=== PATIENT | female | born 1995 | race Caucasian/White ===

== ENCOUNTER 2016-05-27 21:19 | Emergency (ER) | payer OTHER ==
--- NOTE | 2016-05-27 21:54 | ED ORDER SUMMARY ---
..... Patient: MALORIE JACOBSON OrderSheet [facility] VisitID: [id number] [address] [place] [address] 21y, F Registration Date/Time: 05/27/2016 ORDER SHEET Weight: 104.3 kg (stated) Allergies: No Known Drug Allergy GENERAL ORDERS: MEDICATION ORDERS: Zofran ODT PO 4 mg (NOW) (21:54 05/27/2016 EKngozilekhanh P.A.-C) (Ack 21:57 EInderbitzen R.N.) (21:59 EInderbitzen R.N.) Benadryl PO 50 mg (NOW) (:54 05/27/2016 James P.A.-C) (Ack 21:57 EInderbitzen R.N.) (21:59 EInderbitzen R.N.) IV FLUIDS: ORDER SHEET NOTES: [Electronically signed by Albertina Lomeli R.N. (22:03 05/27/2016)] [Electronically signed by Roberta BuenoAShantell-Bill (22:05/27/2016)] [Electronically locked/signed by Albertina Lomeli R.N. (22:03 05/27/2016)]
--- NOTE | 2016-05-27 21:54 | ED NURSING NOTES ---
Clinical Report - Nurses [facility] [address] [place] [address] 05/27/2016 21:22 Patient: MALORIE JACOBSON TRIAGE Triage time 21:May 27 2016. Acuity: LEVEL 4. Chief Complaint: SKIN PROBLEM. 21:28 05/27/16. SEPSIS SCREEN: Sepsis Screen. Negative (no infection suspected/documented). SILVANA COMA SCORE: Silvana Coma Scale: 15- eyes open spontaneously (4); best verbal response- oriented x 4 (5); best motor response- obeys commands (6). --21:35 Albertina Lomeli R.N. 21:28 05/27/16. BP: 132/74. HR: 96. RR: 16. O2 saturation: 98%. Temp: 98.5 F. --21:35 Albertina Lomeli R.N. Weight: 104.3 kg stated. Height/Length: 69 inches Per Patient. BMI: 34. --21:27 Albertina Lomeli R.N. Medications None. --21:29 Albertina Lomeli R.N. 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 --21:34 Albertina Lomeli R.N. Medication/allergy information source: the patient. --21:35 Albertina Lomeli R.N. Allergies No Known Drug Allergy. --21:29 Albertina Lomeli R.N. History Arrived by private vehicle. Historian: patient. Accompanied by family and spouse. Reported as located on the abdomen. Onset. (1 week ago). It is described as itchy. She has had itching. 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 PAST MEDICAL HX: Last normal menstrual period- does not get period, last one at age 13. SOCIAL HX: Heavy tobacco smoker (cigarette)- less than 1 pack per day. No alcohol use or drug use. No infectious disease exposure. ABUSE ASSESSMENT: No report of abuse. SELF HARM ASSESSMENT: A self harm assessment was performed. The patient answered "no" to the question "Have you recently felt down, depressed, or hopeless?", "Have you noticed less interest or pleasure in doing things?", "Do you have thoughts of harming or killing yourself?", "Are you here because you tried to hurt yourself?", "Have you ever tried to hurt yourself before today?", "Have you recently had thoughts about harming or killing others?" and "Do you have any dangerous items in your possession?". NUTRITIONAL RISK ASSESSMENT: The nutritional risk assessment revealed no deficiencies. FUNCTIONAL ASSESSMENT: Functional assessment: no impairments noted. LEARNING NEEDS ASSESSMENT: The learning needs assessment revealed no barriers. SKIN INTEGRITY ASSESSMENT: Skin integrity risk assessment completed. No skin integrity risk identified. --21:35 Albertina Lomeli R.N. PROBLEMS: no known problems. ADDITIONAL SURGERIES: Cholecystectomy. Cyst on left ovary removed. --21:30 Albertina Lomeli R.N. Interventions ID band on patient. --21:35 Albertina Lomeli R.N. PHYSICAL ASSESSMENT 21:37 05/27/16. GENERAL / NEURO / PSYCH: Alert. The patient does not appear to be in acute distress. Oriented X 4. HEENT: Pupils equal, round and reactive to light. Mucous membranes are pink. RESPIRATORY: Respirations not labored. Breath sounds within normal limits. CVS: Capillary refill less than 2 seconds. SKIN: Skin is warm and dry. Well-demarcated skin rash present- slightly red, crater like, flaking, itchy on abdomen. --21:37 Albertina Lomeli R.N. NURSING PROGRESS NOTES 21:36 05/27/16. The initial plan of care for this patient includes an assessment with efforts to address impairment of the integumentary system. This plan of care was discussed with the patient. Patient gowned. Reassurance given. Patient identifiers checked. Call light placed in reach. Side rails up x 1. Bed placed in lowest position. Brakes of bed on. Patient ready for evaluation. --21:36 Albertina Lomeli R.N. 21:59 05/27/2016 Cj ODT (Ondansetron) PO Oral Disintegrating Tablets 4 mg given. Allergies verified and confirmed 5 rights. --21:59 Albertina Lomeli R.N. 21:59 05/27/2016 Benadryl (DiphenhydrAMINE HCl) PO Capsules 50 mg given. Allergies verified, confirmed 5 rights and sedative warning given to the patient. --21:59 Albertina Lomeli R.N. DISPOSITION / DISCHARGE 22:03 05/27/16. Condition at departure: improved and stable. The goals identified in the patient's plan of care were met. No learning barriers present. Reviewed medication(s) side effects, precautions, dosing and course information. Prescription(s) given to the patient. Reviewed referral to a primary care physician for followup. Summary of care provided to patient via paper. The patient was discharged home and accompanied by spouse. She left the Emergency Department ambulatory and via private vehicle. Spouse driving. --22:03 Albertina Lomeli R.N. 21:28 05/27/16. BP: 132/74. HR: 96. RR: 16. O2 saturation: 98%. Temp: 98.5 F. --22:03 Albertina Lomeli R.N. Departure time: :May 27 2016. --22:03 Albertina Lomeli R.N. Locked/Released at 05/27/2016 22:03 by Albertina Lomeli R.N.
--- NOTE | 2016-05-27 21:54 | ED CLINICAL REPORT ---
Clinical Report - Physicians/Mid Levels [facility] [address] [place] [address] 05/27/2016 21:22 Patient: MALORIE JACOBSON Time Seen: 22:08 May 27 2016. Arrived- By private vehicle. Historian- patient. 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 It is described as itchy. (Patient reports rash over the last 7 days. Pruritic in nature. Has been with nausea, times vomiting, decreased appetite. Some chills. Recent illness similar nature to her son. Denies any cough. Denies any recent antibiotics. Denies any recent foreign travel.). REVIEW OF SYSTEMS No cough, hoarseness, chest pain or diarrhea. All systems otherwise negative, except as recorded above. PAST HISTORY Tetanus immunization status is up-to-date. Problems: no known problems. Additional Surgeries: Cholecystectomy. Cyst on left ovary removed. 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 None. Allergies: No Known Drug Allergy. SOCIAL HISTORY Current every day heavy tobacco smoker. No alcohol use or drug use. ADDITIONAL NOTES The nursing notes have been reviewed. PHYSICAL EXAM Vital Signs: 05/27/2016 21:28 BP: 132/74. HR: 96. RR: 16. O2 saturation: 98%. Temp: 98.5 F. Appearance: Alert. No acute distress. ENT: Ears normal. Nose normal. Neck: Neck supple. No lymphadenopathy. CVS: Normal heart rate and rhythm. Heart sounds normal. Respiratory: No respiratory distress. Breath sounds normal. Skin: Skin warm. Rash present on the trunk (Small central clearing her abdomen, with a dry appearing primarily macular scaly rash. No vesicles no drainage.). Neuro: Oriented X 3. PROGRESS AND PROCEDURES Course of Care: Patient with a rash on the abdomen, dry and nature was small circular lesions, central clearing, most consistent with fungal etiology. Abdomen is soft. Negative exam, no signs of septic origin. Likely viral etiology. 05/27/2016 21:28 BP: 132/74. HR: 96. RR: 16. O2 saturation: 98%. Temp: 98.5 F. Patient is stable. Symptoms better. Patient/family counseled. Disposition: Discharged. Condition: good. CLINICAL IMPRESSION Contact dermatitis. Tinea corporis INSTRUCTIONS (Address: [place] [address] Take benadryl). Warnings: Further evaluation is necessary. Prescription Medications: Zofran (orally disintegrating tablets) 4 mg: take 1 orally every 6 hours for 3 days as needed for nausea. Dispense ten (10). No refill. Substitution is permissible. Ketoconazole 2% Cream: apply to affected area as needed for itching twice daily for 1 week, until symptoms improve. Dispense sixty (60) grams. No refills. Understanding of the discharge instructions verbalized. (Electronically signed by Roberta Bueno P.A.-C 05/27/2016 22:10)
--- NOTE | 2016-05-27 21:54 | ED CLINICAL REPORT ---
Clinical Report - Physicians/Mid Levels [facility] [address] [place] [address] 05/27/2016 21:22 Patient: MALORIE JACOBSON Time Seen: 22:08 May 27 2016. Arrived- By private vehicle. Historian- patient. 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 It is described as itchy. (Patient reports rash over the last 7 days. Pruritic in nature. Has been with nausea, times vomiting, decreased appetite. Some chills. Recent illness similar nature to her son. Denies any cough. Denies any recent antibiotics. Denies any recent foreign travel.). REVIEW OF SYSTEMS No cough, hoarseness, chest pain or diarrhea. All systems otherwise negative, except as recorded above. PAST HISTORY Tetanus immunization status is up-to-date. Problems: no known problems. Additional Surgeries: Cholecystectomy. Cyst on left ovary removed. 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 None. Allergies: No Known Drug Allergy. SOCIAL HISTORY Current every day heavy tobacco smoker. No alcohol use or drug use. ADDITIONAL NOTES The nursing notes have been reviewed. PHYSICAL EXAM Vital Signs: 05/27/2016 21:28 BP: 132/74. HR: 96. RR: 16. O2 saturation: 98%. Temp: 98.5 F. Appearance: Alert. No acute distress. ENT: Ears normal. Nose normal. Neck: Neck supple. No lymphadenopathy. CVS: Normal heart rate and rhythm. Heart sounds normal. Respiratory: No respiratory distress. Breath sounds normal. Skin: Skin warm. Rash present on the trunk (Small central clearing her abdomen, with a dry appearing primarily macular scaly rash. No vesicles no drainage.). Neuro: Oriented X 3. PROGRESS AND PROCEDURES Course of Care: Patient with a rash on the abdomen, dry and nature was small circular lesions, central clearing, most consistent with fungal etiology. Abdomen is soft. Negative exam, no signs of septic origin. Likely viral etiology. 05/27/2016 21:28 BP: 132/74. HR: 96. RR: 16. O2 saturation: 98%. Temp: 98.5 F. Patient is stable. Symptoms better. Patient/family counseled. Disposition: Discharged. Condition: good. CLINICAL IMPRESSION Contact dermatitis. Tinea corporis INSTRUCTIONS (Address: [place] [address] Take benadryl). Warnings: Further evaluation is necessary. Prescription Medications: Zofran (orally disintegrating tablets) 4 mg: take 1 orally every 6 hours for 3 days as needed for nausea. Dispense ten (10). No refill. Substitution is permissible. Ketoconazole 2% Cream: apply to affected area as needed for itching twice daily for 1 week, until symptoms improve. Dispense sixty (60) grams. No refills. Understanding of the discharge instructions verbalized. (Electronically signed by Roberta Bueno P.A.-C 05/27/2016 22:10)
--- NOTE | 2016-05-27 21:54 | ED ORDER SUMMARY ---
..... Patient: MALORIE JACOBSON OrderSheet [facility] VisitID: [id number] [address] [place] [address] 21y, F Registration Date/Time: 05/27/2016 ORDER SHEET Weight: 104.3 kg (stated) Allergies: No Known Drug Allergy GENERAL ORDERS: MEDICATION ORDERS: Zofran ODT PO 4 mg (NOW) (21:54 05/27/2016 EKngozilekhanh P.A.-C) (Ack 21:57 EInderbitzen R.N.) (21:59 EInderbitzen R.N.) Benadryl PO 50 mg (NOW) (:54 05/27/2016 James P.A.-C) (Ack 21:57 EInderbitzen R.N.) (21:59 EInderbitzen R.N.) IV FLUIDS: ORDER SHEET NOTES: [Electronically signed by Albertina Lomeli R.N. (22:03 05/27/2016)] [Electronically signed by Roberta BuenoAShantell-Bill (22:05/27/2016)] [Electronically locked/signed by Albertina Lomeli R.N. (22:03 05/27/2016)]
--- NOTE | 2016-05-27 22:10 | ED MED RECONCILIATION SUMMARY ---
Patient: MALORIE JACOBSON Medication Reconciliation Report [facility] VisitID: [id number] [address] [place] [address] 21y, F Registration Date/Time: 05/27/2016 Weight: 104.3 kg Height/Length: 69 in. 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 Dispense ten (10). No refill. Substitution is permissible. -- Roberta Bueno, P.A.-C Ketoconazole 2% Cream: apply to affected area as needed for itching twice daily for 1 week, until symptoms improve. Dispense sixty (60) grams. No refills. -- Roberta Bueno, P.A.-C
--- NOTE | 2016-05-27 22:10 | ED DISCHARGE INSTRUCTIONS ---
Patient: MALORIE JACOBSON General Instructions [facility] VisitID: [id number] [place] [address] 21y, F Registration Date/Time: 05/27/2016 Contact dermatitis. Tinea corporis INSTRUCTIONS (Address: [place] [address] Take benadryl). Warnings: Further evaluation is necessary. Prescription Medications: Zofran (orally disintegrating tablets) 4 mg: take 1 orally every 6 hours for 3 days as needed for nausea. Dispense ten (10). No refill. Substitution is permissible. Ketoconazole 2% Cream: apply to affected area as needed for itching twice daily for 1 week, until symptoms improve. Dispense sixty (60) grams. No refills. Understanding of the discharge instructions verbalized. ADDITIONAL INFORMATION Dermatitis (Non-Specific) Dermatitis is an inflammation of the skin. The exact cause of your rash is not certain. However, this rash does not appear to be an infection or contagious illness. Taking care of the rash at home should help relieve your symptoms. Home Care: Keep the areas of rash clean by washing it daily. This also helps to keep the skin moist. Use a neutral pH soap such as Dove or Lever 2000. Apply a moisturizing lotion after bathing to prevent dry skin. Avoid skin irritants (wool or silk clothing, grease, oils, some medicines, harsh soaps, and detergents). Wear absorbent, soft fabrics next to the skin rather than rough or scratchy materials. Unless another medicine was prescribed, you may use Hydrocortisone cream (which you can get without a prescription) to reduce the inflammation. Follow Up: Make an appointment with your doctor in the next 1 to 2 weeks if your symptoms do not improve with the above measures. Get Prompt Medical Attention if any of the following occur: Increasing area of redness or pain in the skin Yellow crusts or drainage from the rash Joint pain New rash that appears in other areas of the body Fever of 100.4F (38C) or higher, or as directed by your healthcare provider Ringworm, Skin Ringworm is not due to a worm but is caused by a fungus. It is passed from animals or other persons infected with the fungus. The infection starts on the skin as a small red itchy sore that grows larger in the shape of a round 1-2 inch ring with clear skin in the center. This infection is treated with a cream on the skin. More serious infections require oral medicine. Home Care: If you were prescribed a cream, it should be applied exactly as directed. Some antifungal creams are available without a prescription (Lotrimin or Tinactin). It may take a week before the fungus starts to go away and it can take 2-3 weeks to fully clear. To prevent a recurrence, continue the medicine until the rash is all gone. Since the fungus lives in the top layers of the skin, it is helpful to gently scrub the area in the bath or shower with a bath brush to remove the loose layers of skin before applying the medicine. Do not share this brush with others. CONTAGIOUS PERIOD: Untreated ringworm of the SKIN is contagious by [id number] contact. Your child may return to school two days after treatment has started. Follow Up with your doctor as advised by our staff if the rash is not starting to improve after TEN days of treatment or if the rash spreads to other areas of the body. Get Prompt Medical Attention if any of the following occur: Increasing redness around the rash Fluid draining from the rash Fever of 100.4F (38C) or higher, or as directed by your healthcare provider Ondansetron Hydrochloride Oral tablet What is this medicine? ONDANSETRON (on ALIE se rojelio) is used to treat nausea and vomiting caused by chemotherapy. It is also used to prevent or treat nausea and vomiting after surgery. How should I use this medicine? Take this medicine by mouth with a glass of water. Follow the directions on your prescription label. Take your doses at regular intervals. Do not take your medicine more often than directed. Talk to your superintendent greens regarding the use of this medicine in children. Special care may be needed. What side effects may I notice from receiving this medicine? Side effects that you should report to your doctor or health pet care technician as soon as possible: allergic reactions like skin rash, itching or hives, swelling of the face, lips or tongue breathing problems dizziness fast or irregular heartbeat feeling faint or lightheaded, falls fever and chills swelling of the hands or feet tightness in the chest Side effects that usually do not require medical attention (report to your doctor or health pet care technician if they continue or are bothersome): constipation or diarrhea headache What may interact with this medicine? Do not take this medicine with any of the following medications: -apomorphine -cisapride -dofetilide -dronedarone -pimozide -thioridazine -ziprasidone This medicine may also interact with the following medications: -carbamazepine -phenytoin -rifampicin -tramadol -other medicines that prolong the QT interval (cause an abnormal heart rhythm) What if I miss a dose? If you miss a dose, take it as soon as you can. If it is almost time for your next dose, take only that dose. Do not take double or extra doses. Where should I keep my medicine? Keep out of the reach of children. Store between 2 and 30 degrees C (36 and 86 degrees F). Throw away any unused medicine after the expiration date. What should I tell my health care provider before I take this medicine? They need to know if you have any of these conditions: heart disease history of irregular heartbeat liver disease low levels of magnesium or potassium in the blood an unusual or allergic reaction to ondansetron, granisetron, other medicines, foods, dyes, or preservatives or trying to get breast-feeding What should I watch for while using this medicine? Check with your doctor or health pet care technician right away if you have any sign of an allergic reaction. You have been given the following additional information: Dermatitis, Non-Specific Ringworm, Skin Ondansetron Hydrochloride Oral tablet (Electronically signed by Roberta Bueno P.A.-C 05/27/2016 22:10)
--- NOTE | 2016-05-27 22:10 | ED MAR SUMMARY ---
..... Medication Administration Record [facility] [address] [place] [address] Patient: MALORIE JACOBSON Visit ID: [id number] 21y, F Weight: 104.3 kg Height/Length: 69 in BMI: 34 ALLERGIES: No Known Drug Allergy Given 21:05/27/2016 Albertina Lomeli RSalty Medication Administered: ZOFRAN ODT [PO] (ONDANSETRON), Dose: 4 mg Oral Disintegrating Tablets PO. Medication Ordered: Zofran ODT PO 4 mg (NOW). Given 21:05/27/2016 Albertina Lomeli RShantellNShantell Medication Administered: BENADRYL [PO] (DIPHENHYDRAMINE HCL), Dose: 50 mg Capsules PO. Medication Ordered: Benadryl PO 50 mg (NOW).
--- NOTE | 2016-05-27 22:10 | ED MED RECONCILIATION SUMMARY ---
Patient: MALORIE JACOBSON Medication Reconciliation Report [facility] VisitID: [id number] [address] [place] [address] 21y, F Registration Date/Time: 05/27/2016 Weight: 104.3 kg Height/Length: 69 in. 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 Dispense ten (10). No refill. Substitution is permissible. -- Roberta Bueno, P.A.-C Ketoconazole 2% Cream: apply to affected area as needed for itching twice daily for 1 week, until symptoms improve. Dispense sixty (60) grams. No refills. -- Roberta Bueno, P.A.-C
--- NOTE | 2016-05-27 22:10 | ED MAR SUMMARY ---
..... Medication Administration Record [facility] [address] [place] [address] Patient: MALORIE JACOBSON Visit ID: [id number] 21y, F Weight: 104.3 kg Height/Length: 69 in BMI: 34 ALLERGIES: No Known Drug Allergy Given 21:05/27/2016 Albertina Lomeli RSalty Medication Administered: ZOFRAN ODT [PO] (ONDANSETRON), Dose: 4 mg Oral Disintegrating Tablets PO. Medication Ordered: Zofran ODT PO 4 mg (NOW). Given 21:05/27/2016 Albertina Lomeli RShantellNShantell Medication Administered: BENADRYL [PO] (DIPHENHYDRAMINE HCL), Dose: 50 mg Capsules PO. Medication Ordered: Benadryl PO 50 mg (NOW).
--- NOTE | 2016-05-27 22:10 | ED DISCHARGE INSTRUCTIONS ---
Patient: MALORIE JACOBSON General Instructions Formerly [facility] VisitID: [id number] [place] [address] 21y, F Registration Date/Time: 05/27/2016 Contact dermatitis. Tinea corporis INSTRUCTIONS (Address: [place] [address] Take benadryl). Warnings: Further evaluation is necessary. Prescription Medications: Zofran (orally disintegrating tablets) 4 mg: take 1 orally every 6 hours for 3 days as needed for nausea. Dispense ten (10). No refill. Substitution is permissible. Ketoconazole 2% Cream: apply to affected area as needed for itching twice daily for 1 week, until symptoms improve. Dispense sixty (60) grams. No refills. Understanding of the discharge instructions verbalized. ADDITIONAL INFORMATION Dermatitis (Non-Specific) Dermatitis is an inflammation of the skin. The exact cause of your rash is not certain. However, this rash does not appear to be an infection or contagious illness. Taking care of the rash at home should help relieve your symptoms. Home Care: Keep the areas of rash clean by washing it daily. This also helps to keep the skin moist. Use a neutral pH soap such as Dove or Lever 2000. Apply a moisturizing lotion after bathing to prevent dry skin. Avoid skin irritants (wool or silk clothing, grease, oils, some medicines, harsh soaps, and detergents). Wear absorbent, soft fabrics next to the skin rather than rough or scratchy materials. Unless another medicine was prescribed, you may use Hydrocortisone cream (which you can get without a prescription) to reduce the inflammation. Follow Up: Make an appointment with your doctor in the next 1 to 2 weeks if your symptoms do not improve with the above measures. Get Prompt Medical Attention if any of the following occur: Increasing area of redness or pain in the skin Yellow crusts or drainage from the rash Joint pain New rash that appears in other areas of the body Fever of 100.4F (38C) or higher, or as directed by your healthcare provider Ringworm, Skin Ringworm is not due to a worm but is caused by a fungus. It is passed from animals or other persons infected with the fungus. The infection starts on the skin as a small red itchy sore that grows larger in the shape of a round 1-2 inch ring with clear skin in the center. This infection is treated with a cream on the skin. More serious infections require oral medicine. Home Care: If you were prescribed a cream, it should be applied exactly as directed. Some antifungal creams are available without a prescription (Lotrimin or Tinactin). It may take a week before the fungus starts to go away and it can take 2-3 weeks to fully clear. To prevent a recurrence, continue the medicine until the rash is all gone. Since the fungus lives in the top layers of the skin, it is helpful to gently scrub the area in the bath or shower with a bath brush to remove the loose layers of skin before applying the medicine. Do not share this brush with others. CONTAGIOUS PERIOD: Untreated ringworm of the SKIN is contagious by [id number] contact. Your child may return to school two days after treatment has started. Follow Up with your doctor as advised by our staff if the rash is not starting to improve after TEN days of treatment or if the rash spreads to other areas of the body. Get Prompt Medical Attention if any of the following occur: Increasing redness around the rash Fluid draining from the rash Fever of 100.4F (38C) or higher, or as directed by your healthcare provider Ondansetron Hydrochloride Oral tablet What is this medicine? ONDANSETRON (on ALIE se rojelio) is used to treat nausea and vomiting caused by chemotherapy. It is also used to prevent or treat nausea and vomiting after surgery. How should I use this medicine? Take this medicine by mouth with a glass of water. Follow the directions on your prescription label. Take your doses at regular intervals. Do not take your medicine more often than directed. Talk to your molding line operator regarding the use of this medicine in children. Special care may be needed. What side effects may I notice from receiving this medicine? Side effects that you should report to your doctor or health daycare director as soon as possible: allergic reactions like skin rash, itching or hives, swelling of the face, lips or tongue breathing problems dizziness fast or irregular heartbeat feeling faint or lightheaded, falls fever and chills swelling of the hands or feet tightness in the chest Side effects that usually do not require medical attention (report to your doctor or health daycare director if they continue or are bothersome): constipation or diarrhea headache What may interact with this medicine? Do not take this medicine with any of the following medications: -apomorphine -cisapride -dofetilide -dronedarone -pimozide -thioridazine -ziprasidone This medicine may also interact with the following medications: -carbamazepine -phenytoin -rifampicin -tramadol -other medicines that prolong the QT interval (cause an abnormal heart rhythm) What if I miss a dose? If you miss a dose, take it as soon as you can. If it is almost time for your next dose, take only that dose. Do not take double or extra doses. Where should I keep my medicine? Keep out of the reach of children. Store between 2 and 30 degrees C (36 and 86 degrees F). Throw away any unused medicine after the expiration date. What should I tell my health care provider before I take this medicine? They need to know if you have any of these conditions: heart disease history of irregular heartbeat liver disease low levels of magnesium or potassium in the blood an unusual or allergic reaction to ondansetron, granisetron, other medicines, foods, dyes, or preservatives or trying to get breast-feeding What should I watch for while using this medicine? Check with your doctor or health daycare director right away if you have any sign of an allergic reaction. You have been given the following additional information: Dermatitis, Non-Specific Ringworm, Skin Ondansetron Hydrochloride Oral tablet (Electronically signed by Roberta Bueno P.A.-C 05/27/2016 22:10)
== END 2016-05-27 22:03 | disposition home or self-care (01) ==
LOC: ED SRH 21:19
DX: L25.9 Unspecified contact dermatitis, unspecified cause (principal); B35.4 Tinea corporis; F17.210 Nicotine dependence, cigarettes, uncomplicated